=== PATIENT | female | born 1980 | race Caucasian/White ===

== ENCOUNTER 2022-08-08 12:40 | Emergency (ER) | payer OTHER ==
[2022-08-08] MEDS ORDERED: TORAdol 30 mg Injection IM ONE (13:12)
[2022-08-08] MEDS ORDERED: HYDROCODONE-ACETAMIN 10-325 MG PO PRN (13:13)
[2022-08-08] MEDS ORDERED: TORAdol 30 mg Injection ONE (13:17)
--- NOTE | 2022-08-08 13:19 | ERPHSYRPT ---
- History of Present Illness Time Seen by Provider: 08/08/22 13:15 Source: patient Exam Limitations: no limitations Patient Subjective Stated Complaint: Pt states "I have a horrible toothache and I hungry and it hurts to bad to eat. I am on keflex and I had an appointment this morning but had no way to get there." Triage Nursing Assessment: Pt presented alert and oriented X 3, skin pwd. PT ambulates with an upright steady gait, able to speak in clear full sentences pt in no apparent respiratory distress. Physician History: Patient is a 42-year-old female presents to our ED for evaluation and treatment of dental pain. Patient currently on Keflex. Patient had an appointment with a dentist today however did not have a ride to see her dentist. Patient's pain described as an ache that is localized to the left upper maxilla. No trauma. No fever. No headache. Patient states she is hungry and has not been able to eat due her tooth ache. No other complaints. No nausea vomiting or diaphoresis. Patient voices no other complaints or concerns at this time. Portions of this note were created with voice recognition technology. There may be grammatical, spelling, punctuation or sound alike errors Timing/Duration: day(s) (Radiates) Severity: moderate Modifying Factors: Improves With: other (Mastication) Associated Symptoms: denies symptoms Allergies/Adverse Reactions: Penicillins Allergy (Severe, Verified 08/08/22 12:51) anaphylaxis doxycycline Allergy (Mild, Verified 08/08/22 12:51) abdominal problems azithromycin Allergy (Verified 08/08/22 12:51) Hives Home Medications: cephALEXin [Cephalexin] 500 mg PO TID 08/08/22 [History] Hx Tetanus, Diphtheria Vaccination/Date Given: No Hx Influenza Vaccination/Date Given: No Hx Pneumococcal Vaccination/Date Given: No Immunizations Up to Date: Yes Travel Risk - International Travel Have you traveled outside of the country in past 3 weeks: No - Coronavirus Screening Are you exhibiting any of the following symptoms?: No Close contact with a COVID-19 positive Pt in past 14-21 Days: No - Vaccine Status Have you recieved a Covid-19 vaccination: No - Review of Systems Constitutional: No Symptoms, No Fever, No Chills Eyes: No Symptoms Ears, Nose, & Throat: No Symptoms Respiratory: No Symptoms, No Cough, No Dyspnea Cardiac: No Symptoms, No Chest Pain, No Edema, No Syncope Abdominal/Gastrointestinal: No Symptoms, No Abdominal Pain, No Nausea, No Vomiting, No Diarrhea Genitourinary Symptoms: No Symptoms, No Dysuria Musculoskeletal: No Symptoms, No Back Pain, No Neck Pain Skin: No Symptoms, No Rash Neurological: No Symptoms, No Dizziness, No Focal Weakness, No Sensory Changes Psychological: No Symptoms Endocrine: No Symptoms Hematologic/Lymphatic: No Symptoms Immunological/Allergic: No Symptoms All Other Systems: Reviewed and Negative - Past Medical History Pertinent Past Medical History: No (healthy) - Past Surgical History Past Surgical History: Yes Female Surgical History: Tubal Ligation - Social History Smoking Status: Current every day smoker How long have you smoked: YRS Exposure to second hand smoke: Yes Drug Use: none Patient Lives Alone: No - Female History Hx Last Menstrual Period: ablasion Hx Now: No - Nursing Vital Signs Nursing Vital Signs: Initial Vital Signs Temperature 97.1 F 08/08/22 12:45 Pulse Rate 86 08/08/22 12:45 Respiratory Rate 20 08/08/22 12:45 Blood Pressure 156/97 08/08/22 12:45 O2 Sat by Pulse Oximetry 99 08/08/22 12:45 Pain Scale Pain Intensity 8 - Physical Exam General Appearance: no apparent distress, alert Eye Exam: PERRL/EOMI, eyes nml inspection Ears, Nose, Throat Exam: normal ENT inspection, TMs normal, pharynx normal, moist mucous membranes, other (Tooth #2 is carious. This is the painful tooth. Adjacent gingiva is tender and swollen.) Neck Exam: normal inspection, non-tender, supple, full range of motion Respiratory Exam: normal breath sounds, lungs clear, airway intact, No respiratory distress Cardiovascular Exam: regular rate/rhythm, normal heart sounds, normal peripheral pulses Gastrointestinal/Abdomen Exam: soft, normal bowel sounds, No tenderness, No mass Back Exam: normal inspection, normal range of motion, No CVA tenderness, No vertebral tenderness Extremity Exam: normal inspection, normal range of motion, pelvis stable Neurologic Exam: alert, oriented x 3, cooperative, normal mood/affect, nml cerebellar function, nml station & gait, sensation nml, No motor deficits Skin Exam: normal color, warm, dry, No rash Lymphatic Exam: No adenopathy SpO2 Interpretation: normal SpO2: 99 O2 Delivery: Room Air - Course Nursing assessment & vital signs reviewed: Yes Ordered Tests: Medication Summary Generic Name Dose Route Start Last Admin Trade Name Freq PRN Reason Stop Dose Admin Hydrocodone Bitart/Acetaminophen 1 tablet 08/08/22 13:13 08/08/22 13:19 Hydrocodone/Acetamin 10-325 Mg Tablet PO 08/13/22 13:12 1 tablet Q4H PRN PRN Administration PAIN Discontinued Medications Generic Name Dose Route Start Last Admin Trade Name Freq PRN Reason Stop Dose Admin Ketorolac Tromethamine 30 mg 08/08/22 13:12 08/08/22 13:19 Ketorolac Tromethamine 30 Mg/Ml Inj IM 08/08/22 13:13 30 mg STAT ONE Administration Ketorolac Tromethamine Confirm 08/08/22 13:17 Ketorolac Tromethamine 30 Mg/Ml Inj Administered 08/08/22 13:18 Dose 30 mg .ROUTE .STK-MED ONE - Progress Progress: improved Progress Note: Patient reassessed. Pain improved. Vital stable. Patient has an appointment scheduled with a dentist in 3 days. Patient received a dose of Toradol IM for pain control. Patient also received a dose of Bullhead 10 in our ED. A prescription for Toradol and Bullhead was forwarded to patient's pharmacy. Patient agrees to follow-up with a dentist as planned. Patient is a 42-year-old female no significant past medical history presents to our ED with dental pain. On physical exam patient has a carious tooth and dental abscess. Vital stable. Patient reassessed. Pain improved. Complexity of problems addressed as below. Patient's problem is acute and uncomplicated. No systemic manifestations. Complexity of data reviewed and analyzed was none. No specialized testing ordered. Patient's diagnosis based on history and physical examination. Risk of complication and or risk of morbidity/mortality patient management is moderate. Patient received oral controlled medication. Patient also received a prescription for Bullhead which is a controlled medication. A prescription for Toradol was also forwarded to patient's pharmacy. Patient will be discharged home. Patient will follow-up with her dentist in 3 days. Time spent to discharge is approximately 10 minutes. Patient's diagnosis dental pain, carious tooth and dental abscess. Vital stable. Plan of care was based on shared decision making process. Portions of this note were created with voice recognition technology. There may be grammatical, spelling, punctuation or sound alike errors Counseled pt/family regarding: diagnosis, need for follow-up - Departure Departure Disposition: Home Clinical Impression: Pain, dental, Carious teeth, Dental abscess Condition: Stable Critical Care Time: No Referrals: ESTEBAN MIRANDA [Primary Care Provider] - Follow up/PCP as directed Additional Instructions: Discharge/Care Plan HELDER TRUJILLO was seen on 08/08/22 in the Emergency Room. The patient was counseled regarding Diagnosis,Lab results, Imaging studies, need for follow up and when to return to the Emergency Room. Prescriptions given: Discharge Note I have spoken with the patient and/or caregivers. I have explained the patient's condition, diagnosis and treatment plan based on the information available to me at this time. I have answered the patient's and/or caregiver's questions and addressed any concerns. The patient and/or caregivers have as good understanding of the patient's diagnosis, condition and treatment plan as can be expected at this point. The vital signs have been stable. The patient's condition is stable and appropriate for discharge from the emergency department. The patient will pursue further outpatient evaluation with the primary care physician or other designated or consulting physician as outlined in the discharge instructions. The patient and/or caregivers are agreeable to this plan of care and follow-up instructions have been explained in detail. The patient and/or caregivers have received these instruction. The patient/and or caregivers are aware that any significant change in condition or worsening of symptoms should prompt an immediate return to this or the closest emergency department or call 911. Prescriptions: Hydrocodone/APAP 5/325 [Bullhead 5/325 mg] 1 each PO Q6H PRN PRN 3 Days #10 tablet MDD 4 PRN Reason: Pain Ketorolac Trometh 10 mg Tab [TORAdol 10 MG TABLET] 10 mg PO TID 5 Days #15 tablet
[2022-08-08 13:46] VITALS: BP 148/88; PULSE 88; O2SAT 98
== END 2022-08-08 13:59 | disposition home or self-care (01) ==
LOC: ED 12:40
DX: K04.7 Periapical abscess without sinus (principal); K02.9 Dental caries, unspecified; K08.89 Other specified disorders of teeth and supporting structures; Z59.82 Transportation insecurity; Z28.310 Unvaccinated for COVID-19; Z72.0 Tobacco use; Z79.891 Long term (current) use of opiate analgesic
CPT/HCPCS: 96372; 99283; J1885; A9270-GY

== ENCOUNTER 2022-08-21 14:17 | Emergency (ER) | payer OTHER ==
--- NOTE | 2022-08-21 14:31 | ERPHSYRPT ---
- History of Present Illness Time Seen by Provider: 08/21/22 14:30 Source: patient Exam Limitations: no limitations Physician History: This is a 42-year-old white female patient who complains of pain under her left shoulder blade. She had similar symptoms when she had ureterolithiasis in the past. She does state that movement worsens the pain. Patient has not had a menstrual period in over a year. Patient is a daily smoker of cigarettes. Patient rates the pain at 5 out of 10. Pain began this morning when she woke up. She did finish refurbishing a large hope chest last evening and wondered if this was contributing to the pain in her back/flank area on the left side. Patient took 800 mg ibuprofen 3 hours prior to arrival. Patient denies gross hematuria, dysuria, frequency or urgency. Patient has no chest pain. Patient has no shortness of breath. Patient did not suffer any falls or trauma to this area Activites at Onset: none Quality: sharpness, stabbing Onset Location: left flank Pain Radiation: left flank Severity of Pain-Max: moderate Severity of Pain-Current: moderate Sexual intercourse history: non-contributory Modifying Factors: Improves With: movement Associated Symptoms: denies symptoms Allergies/Adverse Reactions: Penicillins Allergy (Severe, Verified 08/21/22 14:32) anaphylaxis doxycycline Allergy (Mild, Verified 08/21/22 14:32) abdominal problems azithromycin Allergy (Verified 08/21/22 14:32) Hives Hx Tetanus, Diphtheria Vaccination/Date Given: No Hx Influenza Vaccination/Date Given: No Hx Pneumococcal Vaccination/Date Given: No Travel Risk - International Travel Have you traveled outside of the country in past 3 weeks: No - Coronavirus Screening Are you exhibiting any of the following symptoms?: No Close contact with a COVID-19 positive Pt in past 14-21 Days: No - Vaccine Status Have you recieved a Covid-19 vaccination: No - Review of Systems Constitutional: No Symptoms Eyes: No Symptoms Ears, Nose, & Throat: No Symptoms Respiratory: No Symptoms Cardiac: No Symptoms Abdominal/Gastrointestinal: No Symptoms Genitourinary Symptoms: Hematuria (No gross hematuria visible), Flank Pain (Left), No Dysuria, No Frequency, No Urgency Musculoskeletal: No Symptoms, Back Pain (Thoracic level/flank on left side), No Fall, No Injury Skin: No Symptoms Neurological: No Symptoms Psychological: No Symptoms Endocrine: No Symptoms Hematologic/Lymphatic: No Symptoms Immunological/Allergic: No Symptoms All Other Systems: Reviewed and Negative - Past Medical History Pertinent Past Medical History: No (healthy) - Past Surgical History Past Surgical History: Yes Female Surgical History: Tubal Ligation - Social History Smoking Status: Current every day smoker How long have you smoked: YRS Exposure to second hand smoke: Yes Drug Use: none Patient Lives Alone: No - Nursing Vital Signs Nursing Vital Signs: Initial Vital Signs Temperature 97.5 F 08/21/22 14:33 Pulse Rate 74 08/21/22 14:33 Respiratory Rate 18 08/21/22 14:33 Blood Pressure 139/94 08/21/22 14:33 O2 Sat by Pulse Oximetry 100 08/21/22 14:33 Pain Scale Pain Intensity 5 - Physical Exam General Appearance: no apparent distress, alert, anxiety Eye Exam: PERRL/EOMI, eyes nml inspection Ears, Nose, Throat Exam: normal ENT inspection, moist mucous membranes Neck Exam: normal inspection, non-tender, supple, full range of motion Respiratory Exam: normal breath sounds, lungs clear, airway intact, No chest tenderness, No respiratory distress Cardiovascular Exam: regular rate/rhythm, normal heart sounds, normal peripheral pulses Gastrointestinal/Abdomen Exam: soft, normal bowel sounds, No tenderness Pelvic Exam: not done Rectal Exam: not done Back Exam: normal inspection (Left), normal range of motion, CVA tenderness, No vertebral tenderness Extremity Exam: normal inspection, normal range of motion, pelvis stable Neurologic Exam: alert, oriented x 3, cooperative, gerontological nurse practitioner II-XII nml as tested, normal mood/affect, nml cerebellar function, nml station & gait, sensation nml Skin Exam: normal color, warm, dry Lymphatic Exam: No adenopathy SpO2 Interpretation: normal O2 Delivery: Room Air - Course Nursing assessment & vital signs reviewed: Yes Ordered Tests: Active Orders 24 hr Category Date Time Status IV Insertion STAT Care 08/21/22 15:14 Active ABDOMEN AND PELVIS W/0 CONTRAS [CT] Stat Exams 08/21/22 15:16 Completed AMYLASE Stat Lab 08/21/22 15:45 Completed CBC W DIFF Stat Lab 08/21/22 15:45 Completed CMP Stat Lab 08/21/22 15:45 Completed CULTURE,URINE Stat Lab 08/21/22 14:30 Received LIPASE Stat Lab 08/21/22 15:45 Completed UA W/RFX UR CULTURE Stat Lab 08/21/22 14:30 Completed Medication Summary Discontinued Medications Generic Name Dose Route Start Last Admin Trade Name Damián PRN Reason Stop Dose Admin Hydromorphone HCl 1 mg 08/21/22 15:14 08/21/22 15:48 Hydromorphone 1 Mg/1ml Inj 1 Mg/Ml Syringe IV 08/21/22 15:15 1 mg STAT ONE Administration Hydromorphone HCl Confirm 08/21/22 15:42 Hydromorphone 1 Mg/1ml Inj 1 Mg/Ml Syringe Administered 08/21/22 15:43 Dose 1 mg .ROUTE .STK-MED ONE Sodium Chloride 1,000 mls @ 999 mls/hr 08/21/22 15:14 08/21/22 15:47 Sodium Chloride 0.9% 1000 Ml IV 08/21/22 16:14 999 mls/hr .Q1H1M STA Administration Sodium Chloride Confirm 08/21/22 15:42 Sodium Chloride 0.9% 1000 Ml Administered 08/21/22 15:43 Dose 1,000 mls @ ud .ROUTE .STK-MED ONE Ondansetron HCl 4 mg 08/21/22 15:14 08/21/22 15:48 Ondansetron Hcl 4 Mg/2 Ml Vial IV 08/21/22 15:15 4 mg STAT ONE Administration Ondansetron HCl Confirm 08/21/22 15:42 Ondansetron Hcl 4 Mg/2 Ml Vial Administered 08/21/22 15:43 Dose 4 mg .ROUTE .STK-MED ONE Lab/Rad Data: Laboratory Result Diagrams 08/21/22 15:45 08/21/22 15:45 Laboratory Results 08/21/22 08/21/22 08/21/22 Range/Units 15:45 15:45 14:30 WBC 7.6 (4.0-10.5) x10^3/uL RBC 4.25 (4.1-5.4) x10^6/uL Hgb 12.6 (12.0-16.0) g/dL Hct 39.0 (35-47) % MCV 91.8 (78-100) fL MCH 29.6 (26-32) pg MCHC 32.3 (32-36) g/dL RDW 13.2 (11.5-14.0) % Plt Count 312 (150-450) x10^3/uL MPV 10.0 (7.5-11.0) fL Gran % 55.6 (36.0-66.0) % Immature Gran % (Auto) 0.1 (0.00-0.4) % Nucleat RBC Rel Count 0.0 (0.00-0.1) % Eos # (Auto) 0.08 (0-0.5) x10^3/uL Immature Gran # (Auto) 0.01 (0.00-0.03) x10^3u/L Absolute Lymphs (auto) 2.71 (1.0-4.6) x10^3/uL Absolute Monos (auto) 0.54 (0.0-1.3) x10^3/uL Absolute Nucleated RBC 0.00 (0.00-0.01) x10^3u/L Lymphocytes % 35.6 (24.0-44.0) % Monocytes % 7.1 (0.0-12.0) % Eosinophils % 1.1 (0.00-5.0) % Basophils % 0.5 (0.0-0.4) % Absolute Granulocytes 4.23 (1.4-6.9) x10^3/uL Basophils # 0.04 (0-0.4) x10^3/uL Sodium 140 (137-145) mmol/L Potassium 3.4 L (3.5-5.1) mmol/L Chloride 103 (98-107) mmol/L Carbon Dioxide 30 (22-30) mmol/L Anion Gap 10.4 (5-15) MEQ/L BUN 21 H (7-17) mg/dL Creatinine 0.66 (0.52-1.04) mg/dL Estimated GFR > 60.0 ML/MIN Glucose 89 (74-106) mg/dL Calcium 8.7 (8.4-10.2) mg/dL Total Bilirubin 0.60 (0.2-1.3) mg/dL AST 31 (14-36) U/L ALT 27 (0-35) U/L Alkaline Phosphatase 82 (38-126) U/L Serum Total Protein 7.5 (6.3-8.2) g/dL Albumin 4.3 (3.5-5.0) g/dL Amylase 67 (30-110) U/L Lipase 33 (23-300) U/L Urine Color Yellow (Yellow) Urine Appearance Clear (Clear) Urine pH 5.5 (4.6-8.0) Ur Specific [place] >=1.030 A (1.005-1.030) Urine Protein Negative (Negative) Urine Glucose (UA) Negative (Negative) mg/dL Urine Ketones Trace A (Negative) Urine Blood Large A (Negative) Urine Nitrite Negative (Negative) Urine Bilirubin Negative (Negative) Urine Urobilinogen 0.2 (0.2) mg/dL Ur Leukocyte Esterase Negative (Negative) U Hyaline Cast (Auto) NONE SEEN (0-2) /LPF Urine Microscopic RBC 21-50 A (0-5) /HPF Urine Microscopic WBC 0-2 (0-5) /HPF Ur Epithelial Cells Rare (None Seen) /HPF Urine Bacteria None Seen (None Seen) /HPF Urine Culture Reflexed YES (NO) - Progress Progress: improved, re-examined Air Movement: good Progress Note: 08/21/22 16:33 CAT scan of the abdomen pelvis without contrast shows no renal calculus or ureteral calculus. There are left renal cyst. Remainder of the CT scan of the abdomen pelvis without contrast is negative This patient's medical issue is of moderate complexity. The complexity and the work-up was based on the review of the patient's past medical history, medication list, drug allergy list, history of present illness and physical exam findings. The work-up includes a urinalysis, intravenous line placement, infusion of normal saline solution, CAT scan of the abdomen pelvis without contrast, CBC, CMP, amylase and lipase levels. I reviewed the results of the above studies. The results show the patient to have hematuria. There is no ureterolithiasis or renal calculi present. The left renal cyst may contribute to some bleeding that is present. We will treat her for hemorrhagic cystitis and also treat her for back pain by having her take ibuprofen 600 mg orally with food 3 times a day and orphenadrine 100 mg orally twice a day. She is to follow-up with her primary care provider in the next 5 to 7 days with referral to a urologist if indicated. Blood Culture(s) Obtained: No Antibiotics given: No Counseled pt/family regarding: lab results, diagnosis, need for follow-up, rad results Medical Desision Making - Discussion of managment Reviewed:: Test results, Need for additional workup Agreed on:: Treatment plan, need for follow-up - Diagnostic Testing Radiological Interpretation: Reviewed by me - Risk of complications The pt has a mod risk of morbidity or mortality based on: Need for prescription drug management - Departure Departure Disposition: Home Clinical Impression: Hemorrhagic cystitis, Back pain Condition: Stable Critical Care Time: No Referrals: ESTEBAN MIRANDA [Primary Care Provider] - Follow up/PCP as directed Additional Instructions: Drink plenty of fluids. Take your medication as prescribed. Take ibuprofen 600 mg orally 3 times a day for the next 5 days. Take with food. Follow-up with your primary care provider in 5 to 7 days to discuss your hematuria and possible referral to urologist if indicated. Prescriptions: Ciprofloxacin [Cipro 500 MG] 500 mg PO BID #14 tablet Orphenadrine Citrate 100 mg [Norflex 100 MG Tablet] 100 mg PO BID #10 tab
[2022-08-21 15:05] LABS: Appearance Clear (Clear); Bacteria None Seen /HPF (None Seen); Bilirubin Negative (Negative); Blood Large (Negative); Epithelial Cells Rare /HPF (None Seen); Glucose, Urine Negative (Negative); Hyaline Casts NONE SEEN /LPF (0-2); Ketones Trace (Negative); Leukocyte Esterase Negative (Negative); Nitrite Negative (Negative); Ph 5.5 (4.6-8.0); Protein,Urine Dip Negative (Negative); RBC 21-50 /HPF (0-5); Specific Gravity >=1.030 (1.005-1.030); Urobilinogen 0.2 mg/dL (0.2); WBC 0-2 /HPF (0-5)
[2022-08-21 15:06] LABS: ADD URINE CULTURE? YES (NO)
[2022-08-21] MEDS ORDERED: Zofran 4 MG/2 ML VIAL IV ONE (15:14)
[2022-08-21] MEDS ORDERED: Hydromorphone 1 mg/ml Injection IV ONE (15:14)
[2022-08-21] MEDS ORDERED: Sodium Chloride 0.9% 1000 ML 1,000 ML IV STA (15:14)
[2022-08-21 15:27] VITALS: O2SAT 98
[2022-08-21] MEDS ORDERED: Zofran 4 MG/2 ML VIAL ONE (15:42)
[2022-08-21] MEDS ORDERED: Sodium Chloride 0.9% 1000 ML 1,000 ML ONE (15:42)
[2022-08-21] MEDS ORDERED: Hydromorphone 1 mg/ml Injection ONE (15:42)
[2022-08-21 15:51] LABS: Absolute Neutrophil Ct (ANC) 4.23 x10^3/uL (1.4-6.9); BASOPHIL % 0.5 % (0.0-0.4); Basophil (Absolute #) 0.04 x10^3/uL (0-0.4); Eosinophil % 1.1 % (0.00-5.0); Eosinophil (Absolute #) 0.08 x10^3/uL (0-0.5); Hemoglobin 12.6 g/dL (12.0-16.0); IMMATURE GRAN # 0.01 x10^3u/L (0.00-0.03); IMMATURE GRAN % 0.1 % (0.00-0.4); Lymphocyte (Absolute #) 2.71 x10^3/uL (1.0-4.6); Lymphocytes % 35.6 % (24.0-44.0); Mean Cell Volume 91.8 fL (78-100); Mean Corpuscular Hemoglobin 29.6 pg (26-32); Mean Corpuscular Hgb Concent. 32.3 g/dL (32-36); Monocyte (Absolute #) 0.54 x10^3/uL (0.0-1.3); Monocytes % 7.1 % (0.0-12.0); Neutrophil % 55.6 % (36.0-66.0); Platelet Count 312 x10^3/uL (150-450); Red Blood Count 4.25 x10^6/uL (4.1-5.4); Red Cell Distribution Width 13.2 % (11.5-14.0); White Blood Count 7.6 x10^3/uL (4.0-10.5)
[2022-08-21 16:10] LABS: ALBUMIN 4.3 g/dL (3.5-5.0); ALKALINE PHOSPHATASE 82 U/L (38-126); AMYLASE 67 U/L (30-110); ANION GAP 10.4 MEQ/L (5-15); BLOOD UREA NITROGEN 21 mg/dL (7-17); CHLORIDE 103 mmol/L (98-107); Calcium 8.7 mg/dL (8.4-10.2); Carbon Dioxide 30 mmol/L (22-30); Creatinine 1 0.66 mg/dL (0.52-1.04); EST GLOMERULAR FILTRATION RATE > 60.0 ML/MIN; Glucose 89 mg/dL (74-106); LIPASE 33 U/L (23-300); Potassium 3.4 mmol/L (3.5-5.1); SGOT/AST 31 U/L (14-36); SGPT/ALT 27 U/L (0-35); SODIUM 140 mmol/L (137-145); Total Protein 7.5 g/dL (6.3-8.2)
--- NOTE | 2022-08-21 16:24 | XRAY ---
Indication: Left flank pain. Multiple contiguous axial images obtained through the abdomen and pelvis without contrast using renal stone protocol. Comparison: None Lung bases clear. Heart not enlarged. No renal calculus or evidence for obstructive uropathy in either system. Left kidney demonstrates a few small round hyperdense lesions favoring cysts, largest 1.5 cm mid pole. Stomach is distended with food/fluid. Gallbladder contracted without gallstones. Noncontrasted stomach and bowel loops appear nonobstructed with normal appendix. No free fluid/air. Remaining liver, gallbladder, pancreas, spleen, adrenal glands, kidneys, ureters, bladder, uterus, and aorta are unremarkable for noncontrast exam. Osseous structures intact with minimal degenerative changes throughout the thoracolumbar spine. No ventral or inguinal hernias. Impression: 1. Negative renal calculus or evidence for obstructive uropathy. 2. Incidental left renal cysts and minimal degenerative spondylosis. 3. Remaining CT abdomen/pelvis without contrast exam is negative.
[2022-08-21 16:41] VITALS: BP 111/75
[2022-08-21 17:03] VITALS: PULSE 68
== END 2022-08-21 18:06 | disposition home or self-care (01) ==
LOC: ED 14:17
DX: N30.91 Cystitis, unspecified with hematuria (principal); M54.6 Pain in thoracic spine; Z28.310 Unvaccinated for COVID-19; Z72.0 Tobacco use
CPT/HCPCS: 36000; 36415; 74176; 80053; 81001; 82150; 83690; 85025; 87086; 96360; 96374; 96375; 99284; J1170; J2405

== ENCOUNTER 2022-09-08 10:19 | Emergency (ER) | payer OTHER ==
--- NOTE | 2022-09-08 10:47 | ERPHSYRPT ---
- History of Present Illness Source: patient Exam Limitations: no limitations Patient Subjective Stated Complaint: Pt states "I woke up with a fever last night and my throat and ears hurt." Triage Nursing Assessment: Pt presented alert and oriented X 3, skin pwd. Pt amble to speak in clear full sentences pt throat has swollen tonsils with white patches. Physician History: 42 yo WF w fever/ST/mild cough/nausea/R otalgia for 1 day. Pt denies co ryza/vomiting/diarrhea/abdominal pain/dysuria/hematuria. Timing/Duration: abrupt onset Severity: mild ENT Location: ear (R), throat Prearrival Treatment: no prearrival treatment Modifying Factors: Improves With: nothing Associated Symptoms: ear pain (R), cough, fever Allergies/Adverse Reactions: Penicillins Allergy (Severe, Verified 08/21/22 14:32) anaphylaxis doxycycline Allergy (Mild, Verified 08/21/22 14:32) abdominal problems azithromycin Allergy (Verified 08/21/22 14:32) Hives Home Medications: No Reportable Medications [No Reported Medications] 09/08/22 [History] Hx Tetanus, Diphtheria Vaccination/Date Given: No Hx Influenza Vaccination/Date Given: No Hx Pneumococcal Vaccination/Date Given: No Travel Risk - International Travel Have you traveled outside of the country in past 3 weeks: No - Coronavirus Screening Symptoms: Fever, Headaches/Body Aches/Fatigue Close contact with a COVID-19 positive Pt in past 14-21 Days: No - Vaccine Status Have you recieved a Covid-19 vaccination: No - Review of Systems Constitutional: No Symptoms, Fever Eyes: No Symptoms Ears, Nose, & Throat: No Symptoms, Ear Pain, Throat Pain Respiratory: No Symptoms, Cough Cardiac: No Symptoms Abdominal/Gastrointestinal: No Symptoms, Nausea Genitourinary Symptoms: No Symptoms Musculoskeletal: No Symptoms Skin: No Symptoms Neurological: No Symptoms Psychological: No Symptoms Endocrine: No Symptoms Hematologic/Lymphatic: No Symptoms Immunological/Allergic: No Symptoms - Past Medical History Pertinent Past Medical History: No (healthy) - Past Surgical History Past Surgical History: Yes Female Surgical History: Tubal Ligation - Social History Smoking Status: Current every day smoker How long have you smoked: YRS Exposure to second hand smoke: Yes Drug Use: none Patient Lives Alone: No - Female History Hx Last Menstrual Period: 1 year ago ablasion Hx Now: No - Nursing Vital Signs Nursing Vital Signs: Initial Vital Signs Temperature 98.0 F 09/08/22 10:25 Pulse Rate 73 09/08/22 10:25 Respiratory Rate 20 09/08/22 10:25 Blood Pressure 122/76 09/08/22 10:25 O2 Sat by Pulse Oximetry 94 L 09/08/22 10:25 Pain Scale Pain Intensity 4 WNL - Physical Exam General Appearance: no apparent distress Eye Exam: bilateral eye: normal inspection, PERRL, EOMI Ear Exam: bilateral ear: auricle normal, canal normal, TM normal Nasal Exam: normal inspection Throat Exam: moist mucus membranes, tonsillar swelling (Mild) Neck Exam: normal inspection Cardiovascular/Respiratory Exam: normal breath sounds, regular rate/rhythm, heart sounds normal Abdominal Exam: non-tender, soft Neurologic Exam: alert, oriented x 3, cooperative, stain dipper II-XII nml as tested, normal mood/affect, nml cerebellar function, nml station & gait, sensation nml Skin Exam: normal color, warm, dry, No rash SpO2 Interpretation: normal SpO2: 94 O2 Delivery: Room Air - Course Nursing assessment & vital signs reviewed: Yes Ordered Tests: Medication Summary Discontinued Medications Generic Name Dose Route Start Last Admin Trade Name Freq PRN Reason Stop Dose Admin Ceftriaxone Sodium 1,000 mg 09/08/22 11:57 09/08/22 12:01 Ceftriaxone Sodium 1000 Mg Inj Vial IM 09/08/22 11:58 1,000 mg STAT ONE Administration Ceftriaxone Sodium Confirm 09/08/22 11:59 Ceftriaxone Sodium 1000 Mg Inj Vial Administered 09/08/22 12:00 Dose 1,000 mg .ROUTE .STK-MED ONE Dexamethasone Sodium Phosphate 10 mg 09/08/22 11:57 09/08/22 12:01 Dexamethasone Sod Phosphate 10 Mg/Ml IM 09/08/22 11:58 10 mg STAT ONE Administration Dexamethasone Sodium Phosphate Confirm 09/08/22 11:59 Dexamethasone Sod Phosphate 10 Mg/Ml Administered 09/08/22 12:00 Dose 10 mg .ROUTE .STK-MED ONE Lidocaine HCl Confirm 09/08/22 11:59 Lidocaine Hcl 1% 20 Ml Mdv 20 Ml Ml Administered 09/08/22 12:00 Dose 3 ml .ROUTE .STK-MED ONE Lab/Rad Data: Laboratory Results 09/08/22 09/08/22 Range/Units 10:35 10:35 Influenza Type A Ag NEGATIVE (NEGATIVE) Influenza Type B Ag NEGATIVE (NEGATIVE) RSV (PCR) NEGATIVE (NEGATIVE) SARS-CoV-2 (PCR) NEGATIVE (NEGATIVE) Group A Strep Antibody NOT DETECTED (NEGATIVE) - Progress Progress Note: 09/08/22 11:58 Nursing note and vital signs reviewed No food or housing insecurities noted Lab results reviewed and shared w pt 1gm IM Rocephin/10mg IM Decadron Counseled pt/family regarding: lab results, diagnosis, need for follow-up Medical Desision Making - Diagnostic Testing Diagnostic test were ordered, analyzed, and reviewed by me: Yes - Risk of complications Low Risk: Low risk of morbidity from additional dx testing or treatment - Departure Departure Disposition: Home Clinical Impression: Pharyngitis Condition: Stable Critical Care Time: No Referrals: ESTEBAN MIRANDA [Primary Care Provider] - Follow up/PCP as directed Instructions: Sore Throat, Adult (DC), Viral Pharyngitis (DC) Additional Instructions: Rest/Fluids/Motrin/Tylenol Follow up with your family MD in 1-2 days Return to ER for worsening of condition
[2022-09-08 11:43] LABS: INFLUENZA A NEGATIVE (NEGATIVE); INFLUENZA B NEGATIVE (NEGATIVE); RESPIRATORY SYNCTIAL VIRUS NEGATIVE (NEGATIVE); SARS-CoV-2 Xpert Express NEGATIVE (NEGATIVE)
[2022-09-08] MEDS ORDERED: Rocephin 1000 MG INJ IM ONE (11:57)
[2022-09-08] MEDS ORDERED: DECADRON 10MG INJ. IM ONE (11:57)
[2022-09-08] MEDS ORDERED: XYLOCAINE 1% HCL 20 ML MDV ONE (11:59)
[2022-09-08] MEDS ORDERED: DECADRON 10MG INJ. ONE (11:59)
[2022-09-08] MEDS ORDERED: Rocephin 1000 MG INJ ONE (11:59)
[2022-09-08 12:36] VITALS: BP 129/78; PULSE 93
[2022-09-08 13:44] VITALS: O2SAT 94
== END 2022-09-08 12:35 | disposition home or self-care (01) ==
LOC: ED 10:19
DX: J02.9 Acute pharyngitis, unspecified (principal); R50.9 Fever, unspecified; R05.1 Acute cough; R11.0 Nausea; H92.01 Otalgia, right ear; Z28.310 Unvaccinated for COVID-19; Z72.0 Tobacco use
CPT/HCPCS: 0241U; 87651; 96372; 99283; J0696; J1100